=== PATIENT | male | born 1965 | race Caucasian/White ===

== ENCOUNTER 2017-01-20 03:52 | Emergency (ER) | payer MEDICARE, MEDICAID ==
[~2017-01-20] VITALS: Ht 175.3 cm; Wt 81.6 kg
[2017-01-20 03:55] VITALS: BP 112/82
--- NOTE | 2017-01-20 04:13 | Emergency Room Report ---
History of Present Illness General Chief Complaint: Upper Extremity Injury Source: Patient Present Illness HPI Is a 51-year-old male who is left handed. He presents with chief complaint of wanting the stitches in splint removed. About 2 weeks ago he got mad and punched a window. He sustained laceration to the skin in the tendon. He had orthopedic repair. He was placed in a splint. [facility] the [facility] because he said he can't move his fingers. He wanted to splint to be removed in the stitches to be removed. Denies any fever chills denies any nausea vomiting. Minimal pain. He was to use his hand again. Allergies: Coded Allergies: PENICILLINS (Verified Allergy, Unknown, 01/20/17) Patient History Past Medical History: see triage record, old chart reviewed Past Surgical History: other Pertinent Family History: other Social History: Denies: smoking Immunizations: other Reviewed Nursing Documentation: PMH: Agreed, PSxH: Agreed Nursing Documentation-PM History Of Psychiatric Problem: Yes - SCHIZO,BIPOLAR Review of Systems Eye: Denies: blurred vision, eye pain ENT: Denies: ear pain, nose congestion, throat swelling Respiratory: Denies: cough, shortness of breath Cardiovascular: Denies: chest pain, palpitations Gastrointestinal: Denies: abdominal pain, diarrhea, nausea, vomiting Musculoskeletal: Denies: back pain, joint pain Skin: Denies: rash Neurological: Denies: headache, numbness Endocrine: Denies: increased thirst, increased urine Hematologic/Lymphatic: Denies: easy bruising All Other Systems: negative except mentioned in HPI Physical Exam Vital Signs Date Time Temp Pulse Resp B/P Pulse Ox O2 Delivery O2 Flow Rate FiO2 01/20/17 03:46 97.3 78 16 115/80 97 Room Air vitals normal Sp02 EP Interpretation: reviewed, normal General Appearance: well appearing, no apparent distress, alert Head: normocephalic, atraumatic Eyes: bilateral eye EOMI, bilateral eye PERRL ENT: hearing grossly normal, normal pharynx Neck: full range of motion, supple, no meningismus Respiratory: chest non-tender, lungs clear, normal breath sounds Cardiovascular #1: regular rate, rhythm, no murmur Gastrointestinal: normal bowel sounds, non tender, no mass, no organomegaly, no bruit, non-distended Musculoskeletal: back normal, gait/station normal, other - Left hand: Patient is in a splint. I removed the splint and taken the dressing. The wound is healing well. No evidence of infection. No drainage. No edema. Sensation normal. Neurologic: alert, oriented x3 Psychiatric: mood/affect normal Skin: warm/dry Medical Decision Making Diagnostic Impression: Primary Impression: Encounter for postoperative wound check ER Course Patient here for wound check. Wound healing well. I told patient not to bother with the splint. Leave it alone. He has an appointment with the orthopedic DrRichard in 36 hours. She appear to have some mental deficiency. We'll [facility] back to [facility]. Last Vital Signs Date Time Temp Pulse Resp B/P Pulse Ox O2 Delivery O2 Flow Rate FiO2 01/20/17 03:46 97.3 78 16 115/80 97 Room Air Status: unchanged Disposition: XFER SNF Condition: Stable Referrals: NON PHYSICIAN (PCP) Additional Instructions: Do not bother with the splint. Did not get it wet. Did not try to move the left hand. Followup with your orthopedic doctor as scheduled on Thursday. Return for fever or swelling. JAMES HENRIQUEZ M.D. Jan 20, 2017 04:13
[2017-01-20 05:01] VITALS: BP 103/81
[2017-01-20 05:05] VITALS: BP 103/81
== END 2017-01-20 05:05 ==
LOC: EDBD 03:52 → EMR 04:04
DX: S61.412D Laceration without foreign body of left hand, subsequent encounter (principal); Z48.01 Encounter for change or removal of surgical wound dressing; F20.9 Schizophrenia, unspecified; F31.9 Bipolar disorder, unspecified; Z88.0 Allergy status to penicillin
CPT/HCPCS: 99283